=== PATIENT | female | born 1955 | race African-American/Black ===

== ENCOUNTER 2017-07-19 20:24 | Emergency (ER) | payer SELFPAY, OTHER ==
[2017-07-19] MEDS: HYDROcodone/APAP 5/325MG 1 TAB TABLET PO (21:19)
== END 2017-07-19 21:25 | disposition home or self-care (01) ==
LOC: ER 20:24
DX: K02.9 Dental caries, unspecified (principal)
CPT/HCPCS: 99283

== ENCOUNTER 2018-12-08 11:18 | Emergency (ER) | payer MEDICARE ==
[~2018-12-08] VITALS: Ht 160 cm; Wt 113.4 kg
[~2018-12-08 11:18] MED LIST: AMOX500C PO; IBUP-1060 PO; UNABLE MC
[2018-12-08 11:39] VITALS: BP 167/76
[2018-12-08] MEDS ORDERED: LIDOCAINE 2% VISCOUS 15 ML SOLUTION. SWSW ONE (12:00)
[2018-12-08] MEDS ORDERED: AMOX1TAB61 PO (12:04)
--- NOTE | 2018-12-08 12:04 | PHYS DOC ---
Past Medical History Past Medical History: Diabetes-Type II, Hypertension Additional Past Medical Histor: OBESITY, Past Surgical History: Other Additional Past Surgical Histo: TUBAL Alcohol Use: None Drug Use: None Adult General Chief Complaint Chief Complaint: DENTAL PROBLEM HPI HPI Patient is a 63 year old female that presents to the emergency department with dental pain has been ongoing for 1 week. The patient rates her pain as 6 out of 10 in severity and sharp. The patient states that she has a Dentist is has to get into the Dentist. He states she's been taking ibuprofen at home which is helping some. Review of Systems Review of Systems Constitutional: Denies fever or chills [] Eyes: Denies change in visual acuity, redness, or eye pain [] HENT: Reports dental pain. Denies nasal congestion or sore throat [] Respiratory: Denies cough or shortness of breath [] Cardiovascular: No additional information not addressed in HPI [] GI: Denies abdominal pain, nausea, vomiting, bloody stools or diarrhea [] : Denies dysuria or hematuria [] Musculoskeletal: Denies back pain or joint pain [] Integument: Denies rash or skin lesions [] Neurologic: Denies headache, focal weakness or sensory changes [] Endocrine: Denies polyuria or polydipsia [] Complete systems were reviewed and found to be within normal limits, except as documented in this note. Allergies Allergies Allergies Coded Allergies Type Severity Reaction Last Updated Verified No Known Drug Allergies 07/19/17 No Physical Exam Physical Exam Constitutional: Well developed, well nourished, no acute distress, non-toxic appearance. [] HENT: Normocephalic, atraumatic, bilateral external ears normal, oropharynx moist, no oral exudates, nose normal. Dental cavities that has gums that are erythematous at # 17. Eyes: PERRLA, EOMI, conjunctiva normal, no discharge. [] Neck: Normal range of motion, no tenderness, supple, no stridor. [] Skin: Warm, dry, no erythema, no rash. [] Back: No tenderness, no CVA tenderness. [] Extremities: No tenderness, no cyanosis, no clubbing, ROM intact, no edema. [] Neurologic: Alert and oriented X 3, normal motor function, normal sensory function, no focal deficits noted. [] Psychologic: Affect normal, judgement normal, mood normal. [] Current Patient Data Vital Signs Vital Signs Date Time Temp Pulse Resp B/P (MAP) Pulse Ox O2 Delivery O2 Flow Rate FiO2 12/08/18 11:39 98.5 64 16 167/76 (106) 94 Room Air 98.5 EKG EKG [] Radiology/Procedures Radiology/Procedures [] Course & Med Decision Making Course & Med Decision Making Pertinent Labs and Imaging studies reviewed. (See chart for details) Will give viscious lidocaine for pain and then will prescribe Augmentin. Dragon Disclaimer Dragon Disclaimer This electronic medical record was generated, in whole or in part, using a voice recognition dictation system. Departure Departure Impression: Primary Impression: Dental abscess Disposition: HOME, SELF-CARE Condition: STABLE Referrals: CHAPARRITA HEATON JR, MD (PCP) Patient Instructions: Carbamide Peroxide dental solution, Dental Abscess, Dental Caries Additional Instructions: Thank you for visiting [facility]. We appreciate you trusting us with your care. If any additional problems come up don't hesitate to return to visit us. Please follow up with your primary care provider so they can plan additional care if needed and know about the problem that you had. If symptoms worsen come back to the Emergency Department. Any concerning symptoms that start such as chest pain, shortness of air, weakness or numbness on one side of the body, running high fevers or any other concerning symptoms return to the ER. You have been prescribed an antibiotic today to help fight your infection. Please take all of the antibiotic as directed. If after 48 hours the infection is not improving, please return for more care. If the infection worsens, return to ER for additional care. Please fill your medications at any pharmacy and follow the prescription instructions. Please follow up with a dentist as soon as possible Scripts Amoxicillin/Potassium Clav (AUGMENTIN [id number] TABLET) 1 Each Tablet 1 TAB PO BID for 7 Days, #14 TAB 0 Refills Prov: YAO MENDEZ APRN 12/08/18 YAO MENDEZ APRN Dec 08, 2018 12:04
== END 2018-12-08 12:12 | disposition home or self-care (01) ==
LOC: ER 11:18
DX: K04.7 Periapical abscess without sinus (principal); E11.9 Type 2 diabetes mellitus without complications; I10 Essential (primary) hypertension; E66.9 Obesity, unspecified; Z68.41 Body mass index [BMI] 40.0-44.9, adult
CPT/HCPCS: 99283